=== PATIENT | male | born 1995 | race Two or more races ===

== ENCOUNTER 2021-05-22 09:20 | Emergency (ER) | payer BC, OTHER ==
[2021-05-22] MEDS ORDERED: Ondansetron 4 MG/2 ML SDV IVPUSH ONE (09:25)
[2021-05-22] MEDS ORDERED: fentaNYL 50 MCG/ML SDV IVPUSH ONE ×2 (09:25→10:04)
[2021-05-22] MEDS ORDERED: Sodium Chloride 0.9% 10 ML Syringe FLUSH PRN (09:26)
[2021-05-22] MEDS ORDERED: Sodium Chloride 0.9% 2.5 ML Syringe FLUSH PRN (09:26)
--- NOTE | 2021-05-22 09:31 | EDM.PDOC ---
ED HPI GENERAL MEDICAL PROBLEM - General Chief Complaint: Trauma Stated Complaint: FELL OFF ROOF Time Seen by Provider: 05/22/21 09:25 - History of Present Illness INITIAL COMMENTS - FREE TEXT/NARRATIVE: History of present illness: [] This 26-year-old man went on his roof because his heat went out and he thought the vent was stuck. He was trying to fix the heat so his family did not suffer. He has 4 children and a at home. While he was on the roof it more than 20 degrees below 0 with ice and snow around he slipped and fell landing on his right elbow. Patient complains mostly of pain in the right elbow and left shoulder but also has pain in his neck and his right hip. The patient does not smoke or drink and enjoys good health. He does not take any medicine. He did not eat or drink this morning. The pain is excruciating in the right elbow and left shoulder. It is worse with movement and being touched. It is sharp and severe. Review of systems: As per history of present illness and below otherwise all systems reviewed and negative. Past medical history: As per history of present illness and as reviewed below otherwise noncontributory. Surgical history: As per history of present illness and as reviewed below otherwise noncontributory. Social history: No reported history of drug or alcohol abuse. Family history: As per history of present illness and as reviewed below otherwise noncontrib utory. Physical exam: Constitutional - well developed, well-nourished and in no acute distress HEENT - normocephalic, no evidence of trauma - external nose and mouth normal - no mass in neck and no JVD - mucosae moist EYES - full EOM, PERRL, no icterus - no evidence of inflammation, injection, or drainage Respiratory - no respiratory distress, equal bilateral expansion, lungs clear to auscultation and no abnormal lung sounds Cardiovascular - Regular Rhythm with S1 and S2 appreciated and no murmur, gallop or rub. GI - abdomen soft without distension or organomegaly - normal bowel sounds - no guard or rebound Musculoskeletal tender left shoulder. Tender right elbow. Tender right hip. Patient was ambulatory into the department. No gross deformity of long bones or joints - no tenderness, swelling or edema Neurologic - Alert and oriented times four - CN II-XII grossly intact - motor sensory and coordination symmetrically normal Psychiatric - appropriate mood and affect with normal thought content Hematologic - No petechiae or purpura - mucosa appropriate color and sclera not pale - normal nail bed color and refill Integument - no rash or evidence of trauma - normal turgor Diagnostics: [] Therapeutics: [] Impression: [] Plan: [] Definitive disposition and diagnosis as appropriate pending reevaluation and review of above. left side Pain Score (Numeric/FACES): 10 - Related Data Allergies Allergy/AdvReac Type Severity Reaction Status Date / Time Sulfa (Sulfonamide Allergy Rash Verified 05/22/21 09:36 Antibiotics) Home Meds: Home Meds . [No Known Home Meds] 05/22/21 [History] Past Medical History - Past Health History Medical/Surgical History: Denies Medical/Surgical History Other Respiratory History: Reports 1 yr history of smoking Other Genitourinary History: hx: Kidney stones, dysuria, infection, Duplicated Right Renal collecting systom, Right kidney stones, hydronephrosis - Past Surgical History Other Female Surgeries/Procedures: cysto with stent placement Other Male Surgeries/Procedures: Treatment of Kidney stone, Stent placement Right Other Musculoskeletal Surgeries/Procedures:: ORIF fractured Clavicle, REmoval hardware Clavicle Review of Systems - Review of Systems Review Of Systems: Comprehensive ROS is negative, except as noted in HPI. ED EXAM, GENERAL - Physical Exam Exam: See Below Free Text/Narrative:: My physical exam is in the HPI Course - Vital Signs Last Recorded V/S: Last Vital Signs Temp 36.0 C L 05/22/21 09:37 Pulse 69 05/22/21 10:58 Resp 16 05/22/21 10:58 BP 131/76 05/22/21 10:58 Pulse Ox 95 05/22/21 10:58 - Orders/Labs/Meds Orders: Active Orders 24 hr Category Date Time Status Sodium Chloride 0.9% [Saline Flush] Med 05/22/21 09:26 Active 10 ml FLUSH ASDIRECTED PRN Sodium Chloride 0.9% [Saline Flush] Med 05/22/21 09:26 Active 2.5 ml FLUSH ASDIRECTED PRN Saline Lock Insert [OM.PC] Stat Oth 05/22/21 09:26 Ordered Medication Orders Sodium Chloride (Sodium Chloride 0.9% 10 Ml Syringe) 10 ml FLUSH ASDIRECTED PRN PRN Reason: Keep Vein Open Last Admin: 05/22/21 09:34 Dose: 10 ml Documented by: SHADI Sodium Chloride (Sodium Chloride 0.9% 2.5 Ml Syringe) 2.5 ml FLUSH ASDIRECTED PRN PRN Reason: Keep Vein Open Last Admin: 05/22/21 09:34 Dose: 2.5 ml Documented by: SHADI Labs: Laboratory Tests 05/22/21 05/22/21 05/22/21 Range/Units 09:28 09:28 09:46 WBC 14.87 H (4.0-11.0) K/uL RBC 5.68 (4.50-5.90) M/uL Hgb 16.0 (13.0-17.0) g/dL Hct 46.5 (38.0-50.0) % MCV 81.9 (80.0-98.0) fL MCH 28.2 (27.0-32.0) pg MCHC 34.4 (31.0-37.0) g/dL RDW Std Deviation 40.0 (28.0-62.0) fl RDW Coeff of Laury 14 (11.0-15.0) % Plt Count 313 (150-400) K/uL MPV 9.30 (7.40-12.00) fL Neut % (Auto) 52.0 (48.0-80.0) % Lymph % (Auto) 36.4 (16.0-40.0) % [place] % (Auto) 9.1 (0.0-15.0) % Eos % (Auto) 2.1 (0.0-7.0) % Baso % (Auto) 0.4 (0.0-1.5) % Neut # (Auto) 7.7 H (1.4-5.7) K/uL Lymph # (Auto) 5.4 H (0.6-2.4) K/uL [place] # (Auto) 1.4 H (0.0-0.8) K/uL Eos # (Auto) 0.3 (0.0-0.7) K/uL Baso # (Auto) 0.1 (0.0-0.1) K/uL Nucleated RBC % 0.0 /100WBC Nucleated RBCs # 0 K/uL Sodium 141 (136-148) mmol/L Potassium 4.0 (3.5-5.1) mmol/L Chloride 103 (98-107) mmol/L Carbon Dioxide 26.7 (21.0-32.0) mmol/L BUN 12 (7.0-18.0) mg/dL Creatinine 1.4 H (0.8-1.3) mg/dL Est Cr Clr Drug Dosing 73.44 mL/min Estimated GFR (MDRD) > 60.0 ml/min Glucose 128 H (74-106) mg/dL Calcium 8.9 (8.5-10.1) mg/dL Total Bilirubin 0.7 (0.2-1.0) mg/dL AST 32 (15-37) IU/L ALT 44 (14-63) IU/L Alkaline Phosphatase 129 H (46-116) U/L Total Protein 7.8 (6.4-8.2) g/dL Albumin 4.2 (3.4-5.0) g/dL Globulin 3.6 (2.6-4.0) g/dL Albumin/Globulin Ratio 1.2 (0.9-1.6) Lipase 181 (73-393) U/L Urine Color Urine Appearance Urine pH (5.0-8.0) Ur Specific [place] (1.001-1.035) Urine Protein (NEGATIVE) mg/dL Urine Glucose (UA) (NEGATIVE) mg/dL Urine Ketones (NEGATIVE) mg/dL Urine Occult Blood (NEGATIVE) Urine Nitrite (NEGATIVE) Urine Bilirubin (NEGATIVE) Urine Urobilinogen (<2.0) EU/dL Ur Leukocyte Esterase (NEGATIVE) Influenza Type A RNA NEGATIVE (NEGATIVE) Influenza Type B RNA NEGATIVE (NEGATIVE) SARS-CoV-2 RNA (VINICIO) NEGATIVE (NEGATIVE) 05/22/21 Range/Units 11:40 WBC (4.0-11.0) K/uL RBC (4.50-5.90) M/uL Hgb (13.0-17.0) g/dL Hct (38.0-50.0) % MCV (80.0-98.0) fL MCH (27.0-32.0) pg MCHC (31.0-37.0) g/dL RDW Std Deviation (28.0-62.0) fl RDW Coeff of [place] (11.0-15.0) % Plt Count (150-400) K/uL MPV (7.40-12.00) fL Neut % (Auto) (48.0-80.0) % Lymph % (Auto) (16.0-40.0) % [place] % (Auto) (0.0-15.0) % Eos % (Auto) (0.0-7.0) % Baso % (Auto) (0.0-1.5) % Neut # (Auto) (1.4-5.7) K/uL Lymph # (Auto) (0.6-2.4) K/uL [place] # (Auto) (0.0-0.8) K/uL Eos # (Auto) (0.0-0.7) K/uL Baso # (Auto) (0.0-0.1) K/uL Nucleated RBC % /100WBC Nucleated RBCs # K/uL Sodium (136-148) mmol/L Potassium (3.5-5.1) mmol/L Chloride (98-107) mmol/L Carbon Dioxide (21.0-32.0) mmol/L BUN (7.0-18.0) mg/dL Creatinine (0.8-1.3) mg/dL Est Cr Clr Drug Dosing mL/min Estimated GFR (MDRD) ml/min Glucose (74-106) mg/dL Calcium (8.5-10.1) mg/dL Total Bilirubin (0.2-1.0) mg/dL AST (15-37) IU/L ALT (14-63) IU/L Alkaline Phosphatase (46-116) U/L Total Protein (6.4-8.2) g/dL Albumin (3.4-5.0) g/dL Globulin (2.6-4.0) g/dL Albumin/Globulin Ratio (0.9-1.6) Lipase (73-393) U/L Urine Color YELLOW Urine Appearance CLEAR Urine pH 7.0 (5.0-8.0) Ur Specific [place] 1.010 (1.001-1.035) Urine Protein NEGATIVE (NEGATIVE) mg/dL Urine Glucose (UA) NEGATIVE (NEGATIVE) mg/dL Urine Ketones NEGATIVE (NEGATIVE) mg/dL Urine Occult Blood NEGATIVE (NEGATIVE) Urine Nitrite NEGATIVE (NEGATIVE) Urine Bilirubin NEGATIVE (NEGATIVE) Urine Urobilinogen 0.2 (<2.0) EU/dL Ur Leukocyte Esterase NEGATIVE (NEGATIVE) Influenza Type A RNA (NEGATIVE) Influenza Type B RNA (NEGATIVE) SARS-CoV-2 RNA (VINICIO) (NEGATIVE) Meds: Medications Generic Name Dose Route Start Last Admin Trade Name Freq PRN Reason Stop Dose Admin Sodium Chloride 10 ml 05/22/21 09:26 05/22/21 09:34 Sodium Chloride 0.9% 10 Ml Syringe FLUSH 10 ml ASDIRECTED PRN Administration Keep Vein Open Sodium Chloride 2.5 ml 05/22/21 09:26 05/22/21 09:34 Sodium Chloride 0.9% 2.5 Ml Syringe FLUSH 2.5 ml ASDIRECTED PRN Administration Keep Vein Open Discontinued Medications Generic Name Dose Route Start Last Admin Trade Name Freq PRN Reason Stop Dose Admin Fentanyl 50 mcg 05/22/21 09:25 05/22/21 09:34 Fentanyl 50 Mcg/Ml Sdv IVPUSH 05/22/21 09:26 50 mcg ONETIME ONE Administration Fentanyl 50 mcg 05/22/21 10:04 05/22/21 10:09 Fentanyl 50 Mcg/Ml Sdv IVPUSH 05/22/21 10:05 50 mcg ONETIME ONE Administration Ondansetron HCl 4 mg 05/22/21 09:25 05/22/21 09:34 Ondansetron 4 Mg/2 Ml Sdv IVPUSH 05/22/21 09:26 4 mg ONETIME ONE Administration - Re-Assessments/Exams Free Text/Narrative Re-Assessment/Exam: 05/22/21 12:48 Because of the impact necessary to fracture of the scapula I discussed the case with the surgeon on-call Dr. Lopez. He felt like if we did a CT of the chest abdomen pelvis and there were no internal injuries the patient could be discharged safely. Plan discharge and follow-up with surgery clinic. Departure - Departure Time of Disposition: 12:48 Disposition: Home, Self-Care 01 Condition: Good Clinical Impression: Fall from roof, Fracture, scapula closed, Contusion of elbow, right, Contusion of hip, right - Discharge Information Instructions: Contusion, [id number], Scapular Fracture Forms: ED Department Discharge Additional Instructions: A strong narcotic pain medicine was sent to [facility] This medicine can cause constipation. Be sure you are taking plenty of fiber and liquids by mouth or take a stool softener and plenty of liquids. Follow-up with primary care. [facility] [address] [place] [id number] [facility] [address] [place] [address] The following information is given to patients seen in the emergency department who are being discharged to home. This information is to outline your options for follow-up care. We provide all patients seen in our emergency department with a follow-up referral. The need for follow-up, as well as the timing and circumstances, are variable depending upon the specifics of your emergency department visit. If you don't have a primary care physician on staff, we will provide you with a referral. We always advise you to contact your personal physician following an emergency department visit to inform them of the circumstance of the visit and for follow-up with them and/or the need for any referrals to a consulting specialist. The emergency department will also refer you to a specialist when appropriate. This referral assures that you have the opportunity for follow-up care with a specialist. All of these measure are taken in an effort to provide you with optimal care, which includes your follow-up. Under all circumstances we always encourage you to contact your private physician who remains a resource for coordinating your care. When calling for follow-up care, please make the office aware that this follow-up is from your recent emergency room visit. If for any reason you are refused follow-up, please contact the [facility] Emergency Department at and asked to speak to the emergency department charge nurse. Follow-up with orthopedic clinic for release to work. [facility] Professional [facility] [address] [place] [address], [address] [place] [address] Sepsis Event Note (ED) - Focused Exam Vital Signs: Vital Signs Temp Pulse Resp BP Pulse Ox 05/22/21 10:58 69 16 131/76 95 05/22/21 10:27 74 16 162/87 H 95 05/22/21 09:37 36.0 C L 92 20 139/112 H 97 - My Orders Last 24 Hours: My Active Orders 05/22/21 09:26 Sodium Chloride 0.9% [Saline Flush] 10 ml FLUSH ASDIRECTED PRN Sodium Chloride 0.9% [Saline Flush] 2.5 ml FLUSH ASDIRECTED PRN Saline Lock Insert [OM.PC] Stat - Assessment/Plan Last 24 Hours: My Active Orders 05/22/21 09:26 Sodium Chloride 0.9% [Saline Flush] 10 ml FLUSH ASDIRECTED PRN Sodium Chloride 0.9% [Saline Flush] 2.5 ml FLUSH ASDIRECTED PRN Saline Lock Insert [OM.PC] Stat
[2021-05-22 10:00] LABS: BLOOD UREA NITROGEN,BUN 12 mg/dL (7.0-18.0); CARBON DIOXIDE,CO2 26.7 mmol/L (21.0-32.0); CHLORIDE,CL 103 mmol/L (98-107); GLUCOSE RANDOM 128 mg/dL (74-106); LIPASE 181 U/L (73-393); SODIUM,NA 141 mmol/L (136-148)
--- NOTE | 2021-05-22 10:33 | CT ---
HISTORY: Pain after falling off a roof. FINDINGS: The left shoulder region was studied in the axial plane. Sagittal and coronal 2 dimensional reconstructions were then performed. There is a comminuted fracture seen through the body of the scapula. There are numerous fracture lines and small cortical offsets without a significant degree of displacement or angulation. The fracture zone does not involve the scapular spine or glenoid. No findings for proximal humeral fracture or clavicular fracture. No findings for dislocation. Soft tissue swelling seen about the fracture zone. IMPRESSION: Comminuted mildly displaced fracture through the scapular body without evidence for involvement of the glenoid. Please note that all CT scans at this facility use dose modulation, iterative reconstruction, and/or weight-based dosing when appropriate to reduce radiation dose to as low as reasonably achievable. Dictated by Haim Schaefer MD @ 05/22/2021 10:32:08 AM (Electronically Signed)
--- NOTE | 2021-05-22 10:34 | CR ---
Indication: Trauma. Fall. Technique: AP portable view of the chest. Comparison: February 14, 2015. Findings: The heart is normal in size. The lungs are clear. No infiltrate, pleural effusion, or pneumothorax is identified. Impression: No acute cardiopulmonary process. Dictated by Flavia Liu MD @ 05/22/2021 10:32:44 AM (Electronically Signed)
--- NOTE | 2021-05-22 10:36 | CR ---
Indication: Trauma. Technique: Three views of the right elbow. Comparison: None Findings: A radial head fracture is identified. Small joint effusion is identified. No other fractures are identified. Impression: Radial head fracture Dictated by Flavia Liu MD @ 05/22/2021 10:35:27 AM (Electronically Signed)
--- NOTE | 2021-05-22 10:38 | CR ---
Indication: Fall. Technique: Two views of the left shoulder. Comparison: None Findings: The humeral head is seated within the glenoid. No fracture or subluxation is identified. Impression: No acute fracture Dictated by Flavia Liu MD @ 05/22/2021 10:35:54 AM (Electronically Signed)
--- NOTE | 2021-05-22 10:38 | CR ---
Indication: Follow-up. Technique: AP view of the pelvis and two views of the right hip. Comparison: None Findings: The femoral heads are seated within the acetabula. No fracture or subluxation is identified. Postoperative changes are identified in the right lower abdomen. Impression: No acute fracture Dictated by Flavia Liu MD @ 05/22/2021 10:36:31 AM (Electronically Signed)
--- NOTE | 2021-05-22 10:48 | CT ---
Indication: Fall off roof Technique: Cervical spine CT Comparison: No comparison Findings: Normal height and alignment of the vertebral bodies. Small slightly fragmented corticated ossific density anterior aspect of C6 likely degenerative. There is no widening of posterior spinous processes. No widening of the intervertebral disc space. There is no acute fracture seen. Lateral masses of C1 align with the articular processes of C2. The prevertebral soft tissues are within. Diffuse upper lobe ground-glass opacities could be related to infection or inflammatory process. Impression: No acute vertebral body fracture or traumatic malalignment. Patchy ground-glass opacities in comes or lung apices could be infectious or inflammatory. In the setting of trauma this could be related to pulmonary hemorrhage are pulmonary edema. Please note that all CT scans at this facility use dose modulation, iterative reconstruction, and/or weight-based dosing when appropriate to reduce radiation dose to as low as reasonably achievable. Dictated by Mercy Bloom MD @ 05/22/2021 10:48:04 AM (Electronically Signed)
[2021-05-22 11:04] LABS: CORONAVIRUS COVID-19 NAA NEGATIVE (NEGATIVE); INFLUENZA A NAA NEGATIVE (NEGATIVE); INFLUENZA B NAA NEGATIVE (NEGATIVE)
--- NOTE | 2021-05-22 12:01 | CT ---
Indication: Follow-up . Technique: Multiple contiguous axial images were obtained from the lung bases through the symphysis pubis after the intravenous administration of 100 cc Isovue 370. Please note that all CT scans at this facility use dose modulation, iterative reconstruction, and/or weight-based dosing when appropriate to reduce radiation dose to as low as reasonably achievable. Comparison: None Findings: Bibasilar atelectasis is identified. The heart is normal in size. No pericardial effusion is identified. The liver, spleen, gallbladder, pancreas, adrenals, and left kidney are normal. Postsurgical changes of right nephrectomy are identified. No soft tissue density is identified within the right nephrectomy bed. Surgical clips are identified extending into the right retroperitoneum into the pelvis. In the pelvis, the distal right ureter is dilated. A stone is identified in the distal right ureter. The prostate gland is normal in size. The urinary bladder is normal. The small and large bowel are normal in caliber. No free fluid or free air is identified within the abdomen or pelvis. A bone island is identified in the left symphysis pubis. The femoral heads are seated within the acetabula. No lower rib fractures are identified. Impression: No evidence of injury of the abdomen or pelvis. Postoperative changes of right nephrectomy. Please note that all CT scans at this facility use dose modulation, iterative reconstruction, and/or weight-based dosing when appropriate to reduce radiation dose to as low as reasonably achievable. Dictated by Flavia Liu MD @ 05/22/2021 11:59:17 AM (Electronically Signed)
--- NOTE | 2021-05-22 12:34 | CT ---
INDICATION: Trauma; fell off the roof. Technique: CT chest with intravenous contrast; coronal and sagittal reformats. FINDINGS: No evidence of mediastinal hematoma. No abnormal mediastinal or hilar lymphadenopathy. No endobronchial pathology. No evidence of pleural effusion or chest wall pathology. Comminuted fracture left scapula. IMPRESSION: 1. Comminuted fracture left scapular. 2. Negative CT chest with intravenous contrast. Please note that all CT scans at this facility use dose modulation, iterative reconstruction, and/or weight-based dosing when appropriate to reduce radiation dose to as low as reasonably achievable. Dictated by Emre Fuller MD @ 05/22/2021 12:32:35 PM (Electronically Signed)
[2021-05-22 14:13] VITALS: BP 139/74; PULSE 80
[2021-05-22] MEDS ORDERED: Iopamidol 755 MG/ML 500 ML Multipack Bottle IVPUSH ONE (16:03)
== END 2021-05-22 13:45 | disposition home or self-care (01) ==
LOC: MW.ED 09:20
DX: S52.121A Displaced fracture of head of right radius, initial encounter for closed fracture (principal); S42.102A Fracture of unspecified part of scapula, left shoulder, initial encounter for closed fracture; S50.01XA Contusion of right elbow, initial encounter; S70.01XA Contusion of right hip, initial encounter; Z88.2 Allergy status to sulfonamides; Z20.822 Contact with and (suspected) exposure to COVID-19; W13.2XXA Fall from, out of or through roof, initial encounter; Y92.009 Unspecified place in unspecified non-institutional (private) residence as the place of occurrence of the external cause
CPT/HCPCS: 0240U; 29105; 36415; 71045; 71260; 72125; 73030; 73080; 73200; 73502; 74177; 80053; 81003; 83690; 85025; 96374; 96375; 96376; 99284; J2405; J3010; Q9967

== ENCOUNTER 2024-05-28 12:30 | Emergency (ER) | payer BC, OTHER ==
[2024-05-28] MEDS: Sodium Chloride 0.9% 1,000 ML IV ONE (13:50)
[2024-05-28 14:08] LABS: BASOPHILS ABSOLUTE AUTO 0.03 K/uL (0.00-0.20); BASOPHILS PERCENT AUTO 0.7 % (0.0-1.0); EOSINOPHILS PERCENT AUTO 2.4 % (0.0-6.0); HEMATOCRIT 41.1 % (42.0-52.0); HEMOGLOBIN 14.4 g/dL (14.0-18.0); IMMATURE GRAN ABSOLUTE AUTO 0.02 K/uL (0.00-0.05); IMMATURE GRAN PERCENT AUTO 0.5 % (0.0-0.4); LYMPHOCYTES ABSOLUTE AUTO 0.82 K/uL (1.00-4.80); LYMPHOCYTES PERCENT AUTO 19.7 % (24.0-44.0); MEAN CORPUSCULAR HEMOGLOBIN 28.4 pg (28.0-32.0); MEAN CORPUSCULAR VOLUME 81.1 fL (83.0-99.0); MEAN PLATELET VOLUME 9.7 fL (9.4-12.4); MONOCYTES ABSOLUTE AUTO 0.74 K/uL (0.00-0.80); MONOCYTES PERCENT AUTO 17.8 % (0.0-8.0); NEUTROPHILS ABSOLUTE AUTO 2.45 K/uL (1.80-7.70); NEUTROPHILS PERCENT AUTO 58.9 % (41.0-71.0); PLATELET COUNT,PLT 175 K/uL (150-400); RED BLOOD CELL COUNT 5.07 M/uL (4.52-5.90); WHITE BLOOD CELL COUNT,WBC 4.16 K/uL (3.9-11.3)
[2024-05-28 14:39] LABS: ALBUMIN 3.9 g/dL (3.4-5.0); BILIRUBIN TOTAL 0.4 mg/dL (0.2-1.0); CALCIUM 8.6 mg/dL (8.5-10.1); CARBON DIOXIDE,CO2 28.2 mmol/L (21.0-32.0); EST CRCL DRUG DOSING (CG) 100.07 mL/min; POTASSIUM,K 4.3 mmol/L (3.5-5.1); PROTEIN TOTAL,TP 7.7 g/dL (6.4-8.2); TSH ULTRASENSITIVE 1.29 uIU/mL (0.36-3.74)
[2024-05-28 14:53] LABS: APPEARANCE,URINE CLEAR; BILIRUBIN,URINE NEGATIVE (NEGATIVE); COLOR,URINE YELLOW; GLUCOSE,URINE NEGATIVE (NEGATIVE); KETONES,URINE NEGATIVE (NEGATIVE); LEUKOCYTE ESTERASE,URINE NEGATIVE (NEGATIVE); NITRITE,URINE NEGATIVE (NEGATIVE); OCCULT BLOOD,URINE NEGATIVE (NEGATIVE); PROTEIN,URINE NEGATIVE (NEGATIVE); UROBILINOGEN,URINE 0.2 EU/dL (<2.0)
[2024-05-28] MEDS: Iopamidol 755 MG/ML 500 ML Multipack Bottle IVPUSH STA (15:23)
[2024-05-28 15:54] VITALS: BP 126/74; PULSE 92
== END 2024-05-28 15:53 | disposition home or self-care (01) ==
LOC: MW.ED 12:30
DX: R06.02 Shortness of breath (principal); Z88.2 Allergy status to sulfonamides; Z75.8 Other problems related to medical facilities and other health care
CPT/HCPCS: 36415; 71045; 71275; 80053; 81003; 84443; 85025; 85379; 87428; 93005; 96360; 99285; J7030; Q9967